=== PATIENT | male | born 1985 | race Caucasian/White ===

== ENCOUNTER 2016-12-26 19:00 | Emergency (ER) | payer OTHER ==
[~2016-12-26] VITALS: Ht 157.5 cm; Wt 61.2 kg
[2016-12-26 19:01] VITALS: BP 146/96
[2016-12-26] MEDS ORDERED: CLEOCIN HCL150 MG PO (19:37)
== END 2016-12-26 19:44 | disposition home or self-care (01) ==
LOC: ER 19:00
DX: S80.812A Abrasion, left lower leg, initial encounter (principal); L08.9 Local infection of the skin and subcutaneous tissue, unspecified; Z88.1 Allergy status to other antibiotic agents; X58.XXXA Exposure to other specified factors, initial encounter; Y93.89 Activity, other specified; Y92.89 Other specified places as the place of occurrence of the external cause; Y99.8 Other external cause status